=== PATIENT | female | born 1965 | race Caucasian/White ===

== ENCOUNTER 2019-07-11 10:36 | Emergency (ER) | payer OTHER ==
--- NOTE | 2019-07-11 11:00 | EDM.PDOC ---
ED HPI GENERAL MEDICAL PROBLEM - General Chief Complaint: Abdominal Pain Stated Complaint: BACK / ABDOMINAL PAIN Time Seen by Provider: 07/11/19 10:57 Source of Information: Reports: Patient History Limitations: Reports: No Limitations - History of Present Illness INITIAL COMMENTS - FREE TEXT/NARRATIVE: pt arrived with upper abdomanal pain. The pain is a 8. She developed the pain suddenly in the nite. She diod vomit several times. She felt the pain was both in her back and abdoman. Pt has not had previous episodes. Onset: Today, Sudden, Other (pain started in the middle of the nite. ) Duration: Hour(s):, Getting Worse Location: Reports: Abdomen Associated Symptoms: Reports: Loss of Appetite, Nausea/Vomiting, Weakness pain across lower back and abdomen pain Pain Score (Numeric/FACES): 8 - Related Data Allergies Allergy/AdvReac Type Severity Reaction Status Date / Time meperidine HCl [From Demerol] AdvReac Delusions Verified 07/12/19 09:57 Home Meds: Home Meds Progesterone, Micronized [Progesterone] 200 mg PO DAILY 07/11/19 [History] Esomeprazole [NexIUM] 20 mg PO DAILY 07/12/19 [History] Ibuprofen [Advil] 400 mg PO DAILY PRN 07/12/19 [History] ED ROS GENERAL - Review of Systems Review Of Systems: See Below Constitutional: Reports: No Symptoms HEENT: Reports: No Symptoms Respiratory: Reports: No Symptoms Cardiovascular: Reports: No Symptoms Endocrine: Reports: No Symptoms GI/Abdominal: Reports: Abdominal Pain, Decreased Appetite, Nausea, Vomiting : Reports: No Symptoms Musculoskeletal: Reports: No Symptoms Skin: Reports: No Symptoms Neurological: Reports: No Symptoms ED EXAM, GI/ABD - Physical Exam Exam: See Below Text/Narrative:: pt arrived with severe rt upper abdomanal pain. She has been vomiting through the nite. Exam Limited By: No Limitations General Appearance: Alert, Anxious, Moderate Distress Ears: Normal TMs Nose: Normal Inspection Throat/Mouth: Normal Inspection Head: Atraumatic Neck: Normal Inspection Respiratory/Chest: No Respiratory Distress Cardiovascular: Regular Rate, Rhythm GI/Abdominal Exam: Tender, Other (pt has tenderness and guarding in the rt upper abdoman. ) (Female) Exam: Deferred Rectal (Female) Exam: Deferred Back Exam: Normal Inspection Extremities: Normal Inspection Neurological: Alert, Oriented, Normal Cognition Psychiatric: Normal Affect Course - Vital Signs Last Recorded V/S: Last Vital Signs Temp 36.4 C 07/11/19 11:06 Pulse 97 07/11/19 11:06 Resp 16 07/11/19 11:06 BP 160/92 H 07/11/19 11:06 Pulse Ox 97 07/11/19 11:06 - Orders/Labs/Meds Labs: Laboratory Tests 07/11/19 07/11/19 07/11/19 Range/Units 11:00 11:03 11:03 WBC 15.2 H (4.5-11.0) K/uL RBC 4.49 (3.30-5.50) M/uL Hgb 14.6 D (12.0-15.0) g/dL Hct 43.9 (36.0-48.0) % MCV 98 (80-98) fL MCH 33 H (27-31) pg MCHC 33 (32-36) % Plt Count 339 (150-400) K/uL Neut % (Auto) 84 H (36-66) % Lymph % (Auto) 9 L (24-44) % [place] % (Auto) 7 H (2-6) % Eos % (Auto) 0 L (2-4) % Baso % (Auto) 0 (0-1) % Sodium 136 L (140-148) mmol/L Potassium 3.8 (3.6-5.2) mmol/L Chloride 97 L (100-108) mmol/L Carbon Dioxide 28 (21-32) mmol/L Anion Gap 14.8 H (5.0-14.0) mmol/L BUN 13 (7-18) mg/dL Creatinine 0.8 (0.6-1.0) mg/dL Est Cr Clr Drug Dosing 68.61 mL/min Estimated GFR (MDRD) > 60 (>60) Glucose 112 H (74-106) mg/dL Calcium 9.2 (8.5-10.1) mg/dL Total Bilirubin 0.6 (0.2-1.0) mg/dL AST 18 (15-37) U/L ALT 24 (12-78) U/L Alkaline Phosphatase 126 H (46-116) U/L Total Protein 8.1 (6.4-8.2) g/dL Albumin 4.3 (3.4-5.0) g/dL Globulin 3.8 H (2.3-3.5) g/dL Albumin/Globulin Ratio 1.1 L (1.2-2.2) Amylase (25-115) U/L Lipase (73-393) U/L Urine Color Yellow (YELLOW) Urine Appearance Clear (CLEAR) Urine pH 7.0 (5.0-8.0) Ur Specific [place] 1.020 (1.008-1.030) Urine Protein Negative (NEGATIVE) mg/dL Urine Glucose (UA) Negative (NEGATIVE) mg/dL Urine Ketones 15 H (NEGATIVE) mg/dL Urine Occult Blood Negative (NEGATIVE) Urine Nitrite Negative (NEGATIVE) Urine Bilirubin Negative (NEGATIVE) Urine Urobilinogen 0.2 (0.2-1.0) EU/dL Ur Leukocyte Esterase Negative (NEGATIVE) Urine RBC 0-5 (0-5) Urine WBC 0-5 (0-5) Ur Epithelial Cells Many Amorphous Sediment Not seen Urine Bacteria Not seen Urine Mucus Few 07/11/19 Range/Units 11:13 WBC (4.5-11.0) K/uL RBC (3.30-5.50) M/uL Hgb (12.0-15.0) g/dL Hct (36.0-48.0) % MCV (80-98) fL MCH (27-31) pg MCHC (32-36) % Plt Count (150-400) K/uL Neut % (Auto) (36-66) % Lymph % (Auto) (24-44) % [place] % (Auto) (2-6) % Eos % (Auto) (2-4) % Baso % (Auto) (0-1) % Sodium (140-148) mmol/L Potassium (3.6-5.2) mmol/L Chloride (100-108) mmol/L Carbon Dioxide (21-32) mmol/L Anion Gap (5.0-14.0) mmol/L BUN (7-18) mg/dL Creatinine (0.6-1.0) mg/dL Est Cr Clr Drug Dosing mL/min Estimated GFR (MDRD) (>60) Glucose (74-106) mg/dL Calcium (8.5-10.1) mg/dL Total Bilirubin (0.2-1.0) mg/dL AST (15-37) U/L ALT (12-78) U/L Alkaline Phosphatase (46-116) U/L Total Protein (6.4-8.2) g/dL Albumin (3.4-5.0) g/dL Globulin (2.3-3.5) g/dL Albumin/Globulin Ratio (1.2-2.2) Amylase 42 (25-115) U/L Lipase 67 L (73-393) U/L Urine Color (YELLOW) Urine Appearance (CLEAR) Urine pH (5.0-8.0) Ur Specific [place] (1.008-1.030) Urine Protein (NEGATIVE) mg/dL Urine Glucose (UA) (NEGATIVE) mg/dL Urine Ketones (NEGATIVE) mg/dL Urine Occult Blood (NEGATIVE) Urine Nitrite (NEGATIVE) Urine Bilirubin (NEGATIVE) Urine Urobilinogen (0.2-1.0) EU/dL Ur Leukocyte Esterase (NEGATIVE) Urine RBC (0-5) Urine WBC (0-5) Ur Epithelial Cells Amorphous Sediment Urine Bacteria Urine Mucus Meds: Medications Discontinued Medications Generic Name Dose Route Start Last Admin Trade Name Freq PRN Reason Stop Dose Admin Hydromorphone HCl 0.5 mg 07/11/19 11:12 07/11/19 11:27 Dilaudid IVPUSH 07/11/19 11:13 0.5 mg ONETIME ONE Administration Sodium Chloride 1,000 mls @ 999 mls/hr 07/11/19 11:30 07/11/19 11:27 Normal Saline IV 999 mls/hr ASDIRECTED PENELOPE Administration Ondansetron HCl 4 mg 07/11/19 11:12 07/11/19 11:27 Zofran IVPUSH 07/11/19 11:13 4 mg ONETIME ONE Administration Sodium Chloride 10 ml 07/11/19 11:11 07/11/19 11:27 Saline Flush FLUSH 10 ml ASDIRECTED PRN Administration Keep Vein Open - Re-Assessments/Exams Free Text/Narrative Re-Assessment/Exam: 07/11/19 11:38 pt has a wbc which is 15,000. Her alk phos is mildly elevated. Her urine is clear. 07/11/19 12:18 pt had a Us which showed a large stone in the neck of the GB. This did not appear to be movable. 07/11/19 12:30 Dr Roberts saw pt in consult and she will have surgery tomorrow am. She will go home now and rtc in the am. Departure - Departure Time of Disposition: 12:45 Disposition: Home, Self-Care 01 Condition: Fair Clinical Impression: Gallbladder stone with nonacute cholecystitis - Discharge Information Instructions: Laparoscopic Cholecystectomy, Gallbladder Eating Plan Referrals: PCP,None [Primary Care Provider] - Forms: ED Department Discharge Additional Instructions: As discussed please present to the outpatient department for surgery at 0930. low fat diet till midnight then nothing by mouth. use motrin up to 800mg every 6 hrs for pain, Rx norco for breakthrough pain. call the ED if you have any questions. Care Plan Goals: discharge per the orders of Dr Roberts. He left a perscription for norco. Sepsis Event Note - Focused Exam Date Exam was Performed: 07/13/19 Time Exam was Performed: 07:55
[2019-07-11] MEDS ORDERED: Sodium Chloride 0.9% 10 ML Syringe FLUSH PRN (11:11)
[2019-07-11] MEDS ORDERED: Ondansetron 4 MG/2 ML SDV IVPUSH ONE (11:12)
[2019-07-11] MEDS ORDERED: HYDROmorphone 0.5 MG/0.5 ML Syringe IVPUSH ONE (11:12)
[2019-07-11] MEDS ORDERED: Sodium Chloride 0.9% 1,000 ML IV SCH (11:30)
--- NOTE | 2019-07-11 12:39 | CRLUS ---
INDICATION: Right upper abdominal pain. TECHNIQUE: Ultrasound abdomen limited. Sonographic images of the right upper quadrant were obtained using andrew-scale and color Doppler images. COMPARISON: CT abdomen and pelvis 11/28/2013. FINDINGS: Liver: Homogeneous in echotexture. No focal lesion. Gallbladder: Apparent nonmobile 1.8 cm shadowing stone near the neck of the gallbladder. Gallbladder is otherwise unremarkable. No gallbladder wall thickening or pericholecystic fluid. Common bile duct: 6-7 mm. Common bile duct as imaged is otherwise unremarkable. Pancreas: Unremarkable as imaged. Right kidney: 10.2 cm in length. Normal echotexture and cortex. No masses, stones, or hydronephrosis. Vasculature: Visualized aorta and IVC are normal. No free fluid demonstrated. IMPRESSION: 1. Apparent nonmobile stone near the neck of the gallbladder. No ultrasound evidence of cholecystitis. Similar findings were present on the comparison CT. 2. Borderline/mild dilatation of the common bile duct, without definite cause. Dictated by Mark Mayorga MD @ 07/11/2019 12:37:39 PM Dictated by: Mark Mayorga MD @ 07/11/2019 12:37:52 (Electronically Signed)
--- NOTE | 2019-07-11 13:28 | CONS ---
DATE OF SERVICE: 07/11/2019 REFERRING PHYSICIAN: CONSULTING PHYSICIAN: Tony Roberts MD REASON FOR CONSULTATION: Right upper quadrant abdominal pain. HISTORY OF PRESENT ILLNESS: This is a 54-year-old patient with acute onset of right upper quadrant abdominal pain after eating greasy and fatty foods. Negative family history. This is a new problem for her. This is associated with mild nausea. No vomiting, shortness of breath, or chest pain. The patient did undergo ultrasound, which is still pending, but preliminary report was reported to me as inflammation and a large stone in the neck of the gallbladder consistent with cholelithiasis and cholecystitis. PAST SURGICAL HISTORY: Appendectomy. PAST MEDICAL HISTORY: Appendicitis. SOCIAL HISTORY: She does not smoke. FAMILY HISTORY: Negative for gallbladder disease. REVIEW OF SYSTEMS: GENERAL: The patient is appropriate for her condition. HEENT: No symptoms. CARDIOVASCULAR: No history of myocardial infarction. RESPIRATORY: No history of shortness of breath. GASTROINTESTINAL: As above. GENITOURINARY: No dysuria. NEUROLOGIC: No reported abnormalities. PSYCH: No reported abnormalities. PHYSICAL EXAMINATION: VITAL SIGNS: Stable. GENERAL: The patient is resting comfortably. HEENT: Pupils are equal. NECK: Supple. LUNGS: Clear. CARDIOVASCULAR: Regular rhythm and rate. ABDOMEN: Pain with palpation, right upper quadrant. Mild guarding. No rebound. Abdomen nondistended. EXTREMITIES: Full range of motion. NEUROLOGIC: Oriented x3. PSYCH: No gross depression. LABORATORY DATA: Show elevated white blood cell count. IMAGING: As described above. ASSESSMENT: Cholelithiasis and cholecystitis. PLAN: The patient will undergo laparoscopic cholecystectomy in the a.m. We discussed risks, benefits, alternatives, and limitations including, but not limited to infection, bleeding, and injury to abdominal structures such as common bile duct injuries, bowel injury. We also discussed cystic duct leaks, requirements for open surgery, chronic pain, and other risks not listed here. The patient understands these risks and wishes to proceed. Tony Roberts MD /[id number]
== END 2019-07-11 12:43 | disposition home or self-care (01) ==
LOC: JP.ED 10:36
DX: K80.10 Calculus of gallbladder with chronic cholecystitis without obstruction (principal); Z79.899 Other long term (current) drug therapy; Z88.5 Allergy status to narcotic agent
CPT/HCPCS: 36415; 76705; 80053; 81001; 82150; 83690; 85025; 96361; 96374; 96375; 99285-25; J1170; J2405; J7030

== ENCOUNTER 2019-07-12 09:29 | Day surgery (SDC) | payer OTHER ==
[~2019-07-12 09:29] MED LIST: Bupivacaine 0.5% 50 ML MDV ONE; Lidocaine 1% with EPINEPHrine 1:100,000 50 ML MDV ONE
[2019-07-12] MEDS ORDERED: metroNIDAZOLE/Normal Saline 500 MG in Premix Bag 1 BAG IV ONE (10:00)
[2019-07-12] MEDS ORDERED: Sodium Chloride 0.9% 1,000 ML IV SCH (10:00)
[2019-07-12] MEDS ORDERED: ceFAZolin 2 GM in Premix Bag 1 BAG IV ONE (10:30)
[2019-07-12] MEDS ORDERED: Propofol 200 MG/20 ML SDV ONE (10:51)
[2019-07-12] MEDS ORDERED: Rocuronium 50 MG/5 ML Vial ONE (10:51)
[2019-07-12] MEDS ORDERED: Glycopyrrolate 0.2 MG/ML 5 ML MDV ONE (10:51)
[2019-07-12] MEDS ORDERED: Neostigmine Methylsulfate 1 MG/ML 5 ML Syringe ONE (10:51)
[2019-07-12] MEDS ORDERED: Ondansetron 4 MG/2 ML SDV ONE (10:51)
[2019-07-12] MEDS ORDERED: Dexamethasone 4 MG/ML SDV ONE (10:51)
[2019-07-12] MEDS ORDERED: fentaNYL 250 MCG/5 ML SDV ONE (10:51)
[2019-07-12] MEDS ORDERED: Ropivacaine 28 ML, dexAMETHasone 8 MG, EPINEPHrine 0.4 MG, Sodium Chloride 0.9% 49.6 ML NERVRT SCH ×4 (11:00)
[2019-07-12] MEDS ORDERED: Labetalol 20 MG/4 ML Syringe ONE (11:22)
[2019-07-12] MEDS ORDERED: Benzocaine/Cetylpyridinium/Menthol Lozenge MUCMEM PRN (12:08)
[2019-07-12] MEDS ORDERED: Docusate Sodium 100 MG Cap PO PRN (12:08)
[2019-07-12] MEDS ORDERED: Zolpidem 5 MG Tab PO PRN (12:08)
[2019-07-12] MEDS ORDERED: Acetaminophen/HYDROcodone 325-5 MG Tab PO PRN (12:08)
[2019-07-12] MEDS ORDERED: hydrOXYzine HCL 100 MG/2 ML SDV IM PRN (12:08)
--- NOTE | 2019-07-13 07:48 | OR ---
DATE OF PROCEDURE: 07/12/2019 SURGEON: Tony Roberts MD PROCEDURE: Laparoscopic cholecystectomy. PREOPERATIVE DIAGNOSES: Cholelithiasis and cholecystitis. POSTOPERATIVE DIAGNOSES: Cholelithiasis and cholecystitis. COMPLICATIONS: None. COPYWRITER: None. ANESTHESIA: General/local. RISKS: Risks, benefits, alternatives, and limitations including, but not limited to infection, bleeding, injury to common bile duct, cystic duct leaks, open surgery, and other risks not listed here were explained to the patient, and they wished to proceed. PROCEDURE IN DETAIL: The patient was placed in the supine position. A supraumbilical curvilinear incision was made. A Veress needle was used to enter the abdomen without abnormality. A drop test was performed without abnormality. The abdomen was subsequently insufflated. This was followed by an Optiview trocar. An additional 10 and two 5 mm ports were entered. Additional ports were entered under direct visualization. The gallbladder was noted to be very enlarged, edematous, and wrapped in omentum. This was mobilized and the gallbladder was retracted cephalad, and the infundibulum retracted inferolaterally. A single pulsatile structure was noted to enter the gallbladder and a single non-pulsatile structure was noted to enter the gallbladder. A "clear view" of the gallbladder was obtained with only these two structures noted. These were then clipped x3 and transected. The remaining one-third of the gallbladder was removed off the gallbladder bed without difficulty. The gallbladder was delivered through the superior port, which had to be enlarged due to the large size of the gallbladder itself. Minimal bleeding on the gallbladder bed was controlled with electrocautery. The pressure was dropped to 7, and there was no abnormal bleeding. This was then thoroughly irrigated. The entry point was inspected for enterotomy. None was noted. The air was removed. The wounds were closed with 3-0 Vicryl and 4-0 Vicryl interrupted running fashion. Dermabond was applied. The patient tolerated the procedure well. Tony Roberts MD /[id number]
--- NOTE | 2019-07-13 07:51 | OR ---
DATE OF PROCEDURE: 07/12/2019 SURGEON: Tony Roberts MD PROCEDURE: Transversus abdominis plane block, bilaterally. COMPLICATION: None. CUSTOM VAN CONVERTER: None. RISKS: Risks, benefits, alternatives, and limitations including, but not limited to infection, bleeding, and injury to abdominal structures were explained to the patient, who wished to proceed. PROCEDURE IN DETAIL: The patient was placed in supine position. The right transversus plane was addressed first. This was accessed using a 13 megahertz ultrasound probe. This was accessed and 80% of contents of the solution were injected into the transversus plane. The other side was then performed in the same manner, same fashion, same technique, in the same sequence, and using the same equipment. The patient tolerated the procedure well. Tony Roberts MD /[id number]
== END 2019-07-12 17:05 | disposition home or self-care (01) ==
LOC: JP.SDS 09:29 → JP.MS 12:08 → JP.SDS 17:05
PROVIDERS: ATTEND Surgery
DX: K80.00 Calculus of gallbladder with acute cholecystitis without obstruction (principal); E78.5 Hyperlipidemia, unspecified; Z88.5 Allergy status to narcotic agent
CPT/HCPCS: A9270-GY; J0171; J0690; J1100; J2405; J2704; J2710; J2795; J3010; J3490; J7030; J7050